=== PATIENT | female | born 1970 | race Caucasian/White ===

== ENCOUNTER 2019-05-02 15:26 | Emergency (ER) | payer OTHER ==
[~2019-05-02] VITALS: Ht 157.5 cm; Wt 99.8 kg
--- NOTE | 2019-05-02 15:28 | NUR ---
PT AMBULATED TO BED 02.
[2019-05-02 15:31] VITALS: BP 130/80
--- NOTE | 2019-05-02 16:09 | NUR ---
PT FAMILY MEMBER TO PROVIDE THE DOG INFORMATION THAT BIT THE PT.
--- NOTE | 2019-05-02 16:09 | NUR ---
PT BIB FAMILY TO ER WITH C/O DIG BITE TO LFT LOWER PART OF THE LIP TODAY. PT HAS MISSING PART OF THE LIP DUE TO BITE. PAIN 07/12. CONTROLLED BLEEDING AT THIS TIME. PT DENIES ANY MEDICAL HX, OR ANY ALLAERGTY TO THE MEDICATION. ER MD TO SEE THE PT.
[2019-05-02] MEDS ORDERED: LIDOCAINE 1% 500 MG/50 ML VIAL INJ SCH (16:30)
[2019-05-02] MEDS ORDERED: LIDOCAINE MPF 1% - 5 mL VIAL 5 ML ONE (17:02)
[2019-05-02] MEDS ORDERED: BACITRACIN OINT 500 UNITS/GM PKT TP ONE (17:25)
--- NOTE | 2019-05-02 17:30 | NUR ---
PT WOUND TREATMENT DONE. DRESSING BEING DONE BY THE [facility] TECH.
[2019-05-02 17:40] VITALS: BP 125/75
--- NOTE | 2019-05-02 17:41 | NUR ---
Patient discharged with v/s stable. Written and verbal after care instructions given and explained. Patient alert, oriented and verbalized understanding of instructions. Ambulatory with steady gait. All questions addressed prior to discharge. ID band removed. Patient advised to follow up with PMD. Rx of AUGMENTIN, IBUPROFEN, NORCO AND BACITRACIN given. Patient educated on indication of medication including possible reaction and side effects. Opportunity to ask questions provided and answered.
== END 2019-05-02 17:41 | disposition home or self-care (01) ==
LOC: MED 15:26
DX: S01.511A Laceration without foreign body of lip, initial encounter (principal); W54.0XXA Bitten by dog, initial encounter; Y93.89 Activity, other specified; Y92.89 Other specified places as the place of occurrence of the external cause; Y99.8 Other external cause status
CPT/HCPCS: 40650; 90471; 90715; 99284; J2001

== ENCOUNTER 2019-05-05 15:22 | Emergency (ER) | payer OTHER ==
[~2019-05-05] VITALS: Ht 160 cm; Wt 90.7 kg
[2019-05-05 15:39] VITALS: BP 136/76
[2019-05-05 16:02] VITALS: BP 136/76
== END 2019-05-05 16:03 | disposition home or self-care (01) ==
LOC: MED 15:22
DX: S01.511D Laceration without foreign body of lip, subsequent encounter (principal); W54.0XXD Bitten by dog, subsequent encounter
CPT/HCPCS: 99281

== ENCOUNTER 2019-05-15 12:53 | Emergency (ER) | payer OTHER ==
[~2019-05-15] VITALS: Ht 154.9 cm; Wt 96.8 kg
[2019-05-15 13:10] VITALS: BP 136/83
--- NOTE | 2019-05-15 13:20 | NUR ---
Patient ambulated to bed 2. RN evaluating patient at bedside.
--- NOTE | 2019-05-15 13:21 | NUR ---
CAME TO ER FOR SUTURE REMOVAL. PLACED 05/05/19. 1 INTACT SUTURE NOTED. DRY SCAB NOTED TO LEFT LOWER LIP. HX: HARD OF HEARING. PAIN 03/12. RX: DENIES
[2019-05-15 13:52] VITALS: BP 136/83
--- NOTE | 2019-05-15 13:54 | NUR ---
Patient discharged with v/s stable. Written and verbal after care instructions given and explained. Patient verbalized understanding. Ambulatory with steady gait. All questions addressed prior to discharge. Advised to follow up with PMD.
== END 2019-05-15 13:52 | disposition home or self-care (01) ==
LOC: MED 12:53
DX: S01.511D Laceration without foreign body of lip, subsequent encounter (principal); X58.XXXD Exposure to other specified factors, subsequent encounter
CPT/HCPCS: 99281